=== PATIENT | male | born 1940 | race Caucasian/White ===

== ENCOUNTER 2017-02-07 09:00 | Emergency (ER) | payer OTHER ==
[2017-02-07] MEDS ORDERED: traMADol HCL 50 MG TABLET PO ONE (09:12)
--- NOTE | 2017-02-07 09:12 | PDOC ---
History of Present Illness - General Chief Complaint: Pain Stated Complaint: RASH, RT FLANK PAIN Time Seen by Provider: 02/07/17 09:10 History Source: Patient Exam Limitations: No Limitations - History of Present Illness Initial Comments: 76 yo M history DM, HTN, HL, GERD, BPH presents with R low back/flank pain for the past 5 days. He states that he was evaluated at an outside hospital 2 days ago, had a negative non-contrast CT of the abdomen, was placed on ibuprofen. Denies diarrhea, fever, chills. He notes some constipation for the past 3 days. No recent trauma. Today he noticed a rash to his low back. Past History - Past Medical History Allergies/Adverse Reactions: Allergies Allergy/AdvReac Type Severity Reaction Status Date / Time Penicillins Allergy Verified 02/07/17 09:11 Home Medications: Ambulatory Orders Docusate Sodium [Colace -] 100 mg PO TID #21 capsule 02/07/17 Gabapentin 300 mg PO ASDIR #90 capsule 02/07/17 Tramadol HCl 0.5 - 1 tab PO Q6H PRN #12 tablet MDD 4 tabs 02/07/17 Valacyclovir HCl [Valtrex -] 1,000 mg PO TID #21 tablet 02/07/17 Review of Systems - Review of Systems Able to Perform ROS?: Yes Comments:: GENERAL/CONSTITUTIONAL: No fever or chills. No weakness. HEAD, EYES, EARS, NOSE AND THROAT: No change in vision. No ear pain or discharge. No sore throat. CARDIOVASCULAR: No chest pain or shortness of breath. RESPIRATORY: No cough, wheezing, or hemoptysis. GASTROINTESTINAL: No nausea, vomiting, diarrhea. +Constipation. GENITOURINARY: No dysuria, frequency, or change in urination. MUSCULOSKELETAL: No joint or muscle swelling or pain. No neck or back pain. SKIN: +Rash NEUROLOGIC: No headache, vertigo, loss of consciousness, or change in strength/ sensation. ENDOCRINE: No increased thirst. No abnormal weight change. HEMATOLOGIC/LYMPHATIC: No anemia, easy bleeding, or history of blood clots. ALLERGIC/IMMUNOLOGIC: No hives or skin allergy. *Physical Exam - Physical Exam Comments: GENERAL: Awake, alert, and fully oriented, in no acute distress. Appears uncomfortable. HEAD: No signs of trauma EYES: PERRLA, EOMI, sclera anicteric, conjunctiva clear ENT: Auricles normal inspection, hearing grossly normal, nares patent, oropharynx clear without exudates. Moist mucosa NECK: Normal ROM, supple, no lymphadenopathy, JVD, or masses LUNGS: Breath sounds equal, clear to auscultation bilaterally. No wheezes, and no crackles HEART: Regular rate and rhythm, normal S1 and S2, no murmurs, rubs or gallops ABDOMEN: Soft, nontender, normoactive bowel sounds. No guarding, no rebound. No masses EXTREMITIES: Normal range of motion, no edema. No clubbing or cyanosis. No cords , erythema, or tenderness NEUROLOGICAL: Cranial nerves II through XII grossly intact. Normal speech, normal gait SKIN: Warm, Dry, normal turgor. +Erythematous rash to R lower back in a dermatomal distribution. +1 Papule to the posterior neck in center. Medical Decision Making - Medical Decision Making Rash is suggestive of herpes zoster. Patient does not recall having chicken pox in the past, however, the distribution is dermatomal. Will place on antivirals, pain medication. He does not have a primary care in the area. Will give a list of providers for this hospital system so that he may see who accepts his insurance. *DC/Admit/Observation/Transfer Diagnosis at time of Disposition: Herpes zoster Qualifiers: Herpes zoster complications: without complications Qualified Code(s): B02.9 - Zoster without complications - Discharge Dispostion Disposition: HOME Condition at time of disposition: Stable Admit: No - Prescriptions Prescriptions: Docusate Sodium [Colace -] 100 mg PO TID #21 capsule Gabapentin 300 mg PO ASDIR #90 capsule Tramadol HCl 0.5 - 1 tab PO Q6H PRN #12 tablet MDD 4 tabs PRN Reason: Severe Pain Valacyclovir HCl [Valtrex -] 1,000 mg PO TID #21 tablet
[2017-02-07 09:16] VITALS: BP 156/82; PULSE 60; TEMP 99.1; BMI 24.3
[2017-02-07] MEDS ORDERED: traMADol HCL 50 MG TABLET ONE (09:27)
== END 2017-02-07 09:55 | disposition home or self-care (01) ==
LOC: FER 09:00
DX: B02.9 Zoster without complications (principal); E11.9 Type 2 diabetes mellitus without complications; I10 Essential (primary) hypertension; E78.5 Hyperlipidemia, unspecified; N40.0 Benign prostatic hyperplasia without lower urinary tract symptoms; K21.9 Gastro-esophageal reflux disease without esophagitis
CPT/HCPCS: 99283-25